=== PATIENT | male | born 1970 | race African-American/Black ===

== ENCOUNTER 2016-10-24 05:04 | Day surgery (SDC) | payer OTHER ==
[2016-10-16 13:00] VITALS: BMI 34.4
[~2016-10-24 05:04] MED LIST: BUPIVACAINE HCL/PF 0.5% (5MG/ML) 10 ML VIAL IJ ONE
[2016-10-24] MEDS ORDERED: MIDAZOLAM HCL 2 MG/2 ML SINGLE DOSE VIAL ONE (13:31)
[2016-10-24] MEDS ORDERED: PROPOFOL 20 ML ONE (14:21)
[2016-10-24] MEDS ORDERED: ceFAZolin SODIUM 1 GM VIAL IVPB ONE (14:30)
[2016-10-24] MEDS ORDERED: KETOROLAC TROMETHAMINE 30 MG/1 ML VIAL ONE (14:35)
[2016-10-24] MEDS ORDERED: ceFAZolin SODIUM 1 GM VIAL ONE (14:35)
[2016-10-24] MEDS ORDERED: DEXAMETHASONE SOD PHOSPHATE 4 MG/1 ML VIAL ONE (14:35)
[2016-10-24] MEDS ORDERED: ONDANSETRON 4 MG/2 ML VIAL IVPUSH PRN (14:52)
[2016-10-24] MEDS ORDERED: oxyCODONE HCL 5 MG TABLET PO PRN (14:52)
[2016-10-24] MEDS ORDERED: PROMETHAZINE HCL 25 MG/1 ML VIAL IVPUSH PRN (14:52)
[2016-10-24] MEDS ORDERED: LACTATED RINGERS SOLUTION 1,000 ML IV SCH (15:00)
[2016-10-24] MEDS ORDERED: BUPIVACAINE HCL/PF 0.5% (5MG/ML) 10 ML VIAL IJ ONE (15:00)
--- NOTE | 2016-10-24 15:21 | OP ---
Operative Note - Note: Operative Date: 10/24/16 Pre-Operative Diagnosis: Left Hydrocele Operation: Left hydrocelectomy Findings: Large left hydrocele, severe inf changes in the testis, large amont of proteinaceous material noted. Post-Operative Diagnosis: Same as Pre-op Anesthesia: General Specimens Removed: Hydrocele sac Drains & Tubes with Location: 1/ marcello drain
--- NOTE | 2016-10-24 16:06 | OP ---
DATE OF OPERATION: 10/24/2016 SURGEON: Lloyd Bajwa MD ANESTHESIA: General. PREOPERATIVE DIAGNOSIS: Left hydrocele. POSTOPERATIVE DIAGNOSIS: Left hydrocele. PROCEDURE: Left hydrocelectomy. FINDINGS: A very large hydrocele noted on the left side containing several hundred mL of clear fluid. Left testis appeared to be mottled, markedly inflamed. Left was also found to be very hard and appeared inflamed. Surrounding the left testis noted proteinaceous gelatinous material all around both of all were removed. DESCRIPTION OF PROCEDURE: Patient in supine position under general anesthesia was prepped and draped in the usual manner. A skin incision was made on the left hemiscrotum, deepened to the deeper structures. The sac was identified, opened, and the fluid was drained. Then, the excess sac was removed, and the sac was then noted, and it just was sutured using 2-0 Vicryl. A 0.25-inch [place] drain was placed and brought out through a stab wound, and wound was closed in two layers. Multiple bleeding points were electrocoagulated. Patient tolerated the procedure well and left the operating room under satisfactory condition. Willie [id number]
[2016-10-24 17:01] VITALS: TEMP 98.3
[2016-10-24 17:34] VITALS: BP 128/70; PULSE 97
--- NOTE | 2016-10-26 11:19 | PATH ---
Surgical Pathology Report Patient Name: ADELE CALIX [facility]. Rec. #: [id number] /Age/Gender: 1970 (Age: 45) / M Account: [id number] Location: [facility] Taken: 10/24/2016 Received: 10/25/2016 Reported: 10/26/2016 Physicians: Kelvin Mann M.D. Specimen(s) Received LEFT HYDROCELE SAC& CONTENTS Clinical History Left hydrocele Final Diagnosis LEFT HYDROCELE SAC AND CONTENTS, EXCISION: FIBROMEMBRANOUS TISSUE CONSISTENT WITH HYDROCELE SAC. BENIGN HYALINIZED NODULE WITH CENTRAL CALCIFICATION PRESENT. Electronically Signed Flash Ellis M.D. Gross Description Received in formalin labelled "left hydrocele sac and contents" is an approximately 2.5 x 1.8 x 1.2 cm aggregate of purple and de [place] fibromembranous tissue. An additional 0.7 cm in greatest dimension firm de [place] nodule is noted. Abstract Searcher sections are submitted in one cassette. [facility]/10/25/2016 [facility]/10/25/2016
== END 2016-10-24 17:39 | disposition home or self-care (01) ==
LOC: JASU-SURG 05:04
PROVIDERS: ATTEND Urology
PROC: 0VB70ZZ Excision of Left Tunica Vaginalis, Open Approach (ICD-10-PCS; principal; 2016-10-24 13:30)
DX: N43.2 Other hydrocele (principal)
CPT/HCPCS: 88302-TC; 94760